=== PATIENT | female | born 1985 | race Two or more races ===

== ENCOUNTER 2019-01-24 11:06 | Emergency (ER) | payer SELFPAY ==
[~2019-01-24] VITALS: Ht 160 cm; Wt 83.9 kg
[2019-01-24 14:45] VITALS: BP 123/84
== END 2019-01-24 15:19 | disposition home or self-care (01) ==
LOC: ER 11:06
DX: O36.4XX0 Maternal care for intrauterine death, not applicable or unspecified (principal); Z3A.32 32 weeks gestation of pregnancy
CPT/HCPCS: 36415; 76805; 84702